=== PATIENT | male | born 1940 | race Caucasian/White ===

== ENCOUNTER 2023-04-12 12:27 | Inpatient (IN) ==
[2023-04-12] MEDS ORDERED: IOPAMIDOL 100 ML BOTTLE IV ONE (12:28)
[2023-04-12 13:26] LABS: Basophils # (Auto) 0.06 K/mcL (0.00-0.30); Basophils % (Auto) 0.6 % (0.0-2.0); Eosinophils # (Auto) 0.39 K/mcL (0.00-0.70); Eosinophils % (Auto) 3.8 % (0.0-7.0); Hematocrit 38.3 % (40.1-51.0); Hemoglobin 11.8 g/dL (13.7-17.5); Lymphocytes # (Auto) 1.82 K/mcL (1.50-4.80); Lymphocytes % (Auto) 17.8 % (15.5-49.0); Mean Cell Volume 102.1 fL (80.0-100.0); Mean Corpuscular HGB Conc 30.8 g/dL (31.0-36.0); Mean Platelet Volume 9.1 fL (8.8-12.5); Monocytes # (Auto) 1.04 K/mcL (0.10-0.90); Monocytes % (Auto) 10.2 % (1.0-12.0); Neutrophils % (Auto) 67.4 % (38.0-78.0); Platelet Count 300 K/mcL (140-440); RBC 3.75 M/mcL (4.63-6.08); Red Cell Distribution Width 13.9 % (11.5-14.5); WBC 10.2 K/mcL (4.5-11.0)
[2023-04-12 13:49] LABS: ALT/SGPT 34 U/L (<40); AST/SGOT 28 U/L (<40); Albumin 3.8 gm/dL (3.2-5.2); Alkaline Phosphatase 126 U/L (39-117); Bilirubin,Total 0.4 mg/dL (0.1-1.0); Blood Urea Nitrogen 25 mg/dL (8-23); Calcium 9.2 mg/dL (8.6-10.4); Carbon Dioxide 29 mmol/L (22-30); Chloride 101 mmol/L (96-108); Globulin 3.7 gm/dL (2.2-3.7); Glomerular Filtration Rate 56; Glucose 119 mg/dL (70-105)
[2023-04-12] MEDS ORDERED: ACETAMINOPHEN 325 MG TABLET PO PRN (19:32)
[2023-04-12] MEDS ORDERED: BISACODYL 10 MG SUPP.RECT PR PRN (19:32)
[2023-04-12] MEDS ORDERED: MAGNESIUM HYDROXIDE 30 ML ORAL.SUSP PO PRN (19:32)
[2023-04-12] MEDS ORDERED: ONDANSETRON 4 MG/2 ML VIAL IV PRN (19:32)
[2023-04-12] MEDS: 0.9 % SODIUM CHLORIDE 10 ML SYRINGE IV SCH (20:31)
[2023-04-12] MEDS: SENNOSIDES 1 TABLET PO SCH (20:32)
[2023-04-12] MEDS: DOCUSATE SODIUM 100 MG CAPSULE PO SCH (20:32)
[2023-04-12] MEDS: METOPROLOL TARTRATE 25 MG TABLET PO SCH (20:32)
[2023-04-12] MEDS ORDERED: LORazepam 1 MG TABLET ONE (23:35)
[2023-04-12] MEDS: LORazepam 1 MG TABLET PO PRN (23:36)
[2023-04-13] MEDS ORDERED: LORazepam 1 MG TABLET ONE (03:52)
[2023-04-13] MEDS: LORazepam 1 MG TABLET PO PRN (03:53)
[2023-04-13] MEDS: 0.9 % SODIUM CHLORIDE 10 ML SYRINGE IV SCH ×3 (05:36→22:58)
[2023-04-13 06:33] LABS: Blood Urea Nitrogen 24 mg/dL (8-23); Calcium 9.2 mg/dL (8.6-10.4); Carbon Dioxide 27 mmol/L (22-30); Chloride 104 mmol/L (96-108); Glomerular Filtration Rate 62; Glucose 120 mg/dL (70-105)
[2023-04-13] MEDS: METOPROLOL TARTRATE 25 MG TABLET PO SCH ×2 (08:15→21:10)
[2023-04-13] MEDS: ENOXAPARIN 40 MG/0.4 ML SYRINGE SQ SCH (08:15)
[2023-04-13] MEDS: LEVOTHYROXINE 75 MCG TABLET PO SCH (08:15)
[2023-04-13] MEDS: ATORVASTATIN 40 MG TABLET PO SCH (08:15)
[2023-04-13] MEDS: AMIODARONE HCL 200 MG TABLET PO SCH (08:15)
[2023-04-13] MEDS: ASPIRIN 81 MG TAB.CHEW CHEWED SCH (08:15)
[2023-04-13] MEDS: FUROSEMIDE 40 MG/4 ML VIAL IV SCH ×2 (08:15→15:37)
[2023-04-13] MEDS: DOCUSATE SODIUM 100 MG CAPSULE PO SCH ×2 (08:15→21:10)
[2023-04-13] MEDS ORDERED: clonazePAM 1 MG TABLET PO PRN (09:57)
[2023-04-13] MEDS: PREGABALIN 25 MG CAPSULE PO SCH ×2 (15:37→21:11)
[2023-04-13] MEDS: rOPINIRole 1 MG TABLET PO SCH ×2 (15:37→21:11)
[2023-04-13 18:22] LABS: LDH,Pleural Fluid 131 U/L (<122)
[2023-04-13 18:45] LABS: Appearance,Pleural Fluid Cloudy; Color,Pleural Fluid Red; Lymphocytes,Pleural Fluid 20 %; Mesothelial,Pleural Fluid 5 %; Monocytes,Pleural Fluid 6 %; Neutrophils,Pleural Fluid 69 %; Nucleated Cells,Pleural Fld 1272 /cumm; RBC,Pleural Fluid <50,000 /cumm
[2023-04-13] MEDS: SENNOSIDES 1 TABLET PO SCH (21:10)
[2023-04-14] MEDS: 0.9 % SODIUM CHLORIDE 10 ML SYRINGE IV SCH (06:03)
[2023-04-14 06:17] LABS: Hematocrit 37.7 % (40.1-51.0); Hemoglobin 11.2 g/dL (13.7-17.5); Mean Cell Volume 106.8 fL (80.0-100.0); Mean Corpuscular HGB Conc 29.7 g/dL (31.0-36.0); Mean Platelet Volume 9.9 fL (8.8-12.5); Platelet Count 249 K/mcL (140-440); RBC 3.53 M/mcL (4.63-6.08); WBC 10.4 K/mcL (4.5-11.0)
[2023-04-14 06:46] LABS: ALT/SGPT 32 U/L (<40); AST/SGOT 31 U/L (<40); Albumin 3.5 gm/dL (3.2-5.2); Alkaline Phosphatase 118 U/L (39-117); Bilirubin,Direct < 0.2 mg/dL (0-0.3); Bilirubin,Total 0.5 mg/dL (0.1-1.0); Blood Urea Nitrogen 25 mg/dL (8-23); Calcium 9.3 mg/dL (8.6-10.4); Carbon Dioxide 27 mmol/L (22-30); Chloride 104 mmol/L (96-108); Globulin 3.5 gm/dL (2.2-3.7); Glomerular Filtration Rate 70; Glucose 114 mg/dL (70-105); Lactate Dehydrogenase 243 U/L (135-225); Phosphorous 3.4 mg/dL (2.5-4.5); Triglycerides 75 mg/dL (<150); Uric Acid 5.7 mg/dL (2.5-8.0)
[2023-04-14] MEDS: FUROSEMIDE 40 MG/4 ML VIAL IV SCH (07:29)
[2023-04-14] MEDS: LEVOTHYROXINE 75 MCG TABLET PO SCH (07:29)
[2023-04-14] MEDS: AMIODARONE HCL 200 MG TABLET PO SCH (07:29)
[2023-04-14] MEDS: rOPINIRole 1 MG TABLET PO SCH (08:39)
[2023-04-14] MEDS: ASPIRIN 81 MG TAB.CHEW CHEWED SCH (08:40)
[2023-04-14] MEDS: PREGABALIN 25 MG CAPSULE PO SCH (08:40)
[2023-04-14] MEDS: DOCUSATE SODIUM 100 MG CAPSULE PO SCH (08:40)
[2023-04-14] MEDS: METOPROLOL TARTRATE 25 MG TABLET PO SCH (08:41)
[2023-04-14] MEDS: ATORVASTATIN 40 MG TABLET PO SCH (08:42)
[2023-04-14] MEDS: ENOXAPARIN 40 MG/0.4 ML SYRINGE SQ SCH (08:43)
[2023-04-14] MEDS ORDERED: POTASSIUM CHLORIDE 10 MEQ TABLET PO SCH (09:00)
== END 2023-04-14 13:30 | disposition home or self-care (01) | DRG 205 ==
LOC: ED 12:27 → ICU 19:26
PROVIDERS: ADMIT Internal Medicine; ATTEND Internal Medicine